=== PATIENT | male | born 1945 ===

== ENCOUNTER 2024-04-27 01:43 | Day surgery (SDC) | payer OTHER ==
[2024-04-22 14:35] VITALS: BP 135/76
[~2024-04-27] VITALS: Ht 177.8 cm; Wt 53.5 kg
[~2024-04-27 01:43] MED LIST: AMLODIPINE BESY10 MG PO; FINASTERIDE5 MG PO; GLIMEPIRIDE4 M1 PO; GRALISE600 MG PO; HYDRALAZINE HCL50 MG PO; PENTOXIFYLLINE400 MG PO; PROTONIX40 MG PO; TOPROL XL50 M1 PO
[2024-04-27] MEDS ORDERED: POVIDONE-IODINE 118 ML BOTT TOP ONE (15:16)
[2024-04-27] MEDS ORDERED: CEFTRIAXONE SODIUM 2,000 MG VIAL ONE (15:17)
[2024-04-27] MEDS ORDERED: HEMOSTATIC MATRIX 1 KIT KIT TOP ONE (15:17)
[2024-04-27] MEDS ORDERED: LIDOCAINE HCL 1%/EPINEPHRINE 20ML VIAL IJ ONE (15:17)
[2024-04-27] MEDS ORDERED: BUPIVACAINE HCL/MPF 0.5% 30ML VIAL ONE (15:17)
[2024-04-27] MEDS ORDERED: DIBUCAINE 30 GM TUBE ONE (15:17)
[2024-04-27] MEDS ORDERED: METRONIDAZOLE/SODIUM CHLORIDE 500 MG/100 ML PIGGYBACK IV ONE (15:18)
== END 2024-04-27 20:55 | disposition home or self-care (01) ==
LOC: CIR.AMB 01:43
PROVIDERS: ATTEND Colon & Rectal Surgery
DX: D12.8 Benign neoplasm of rectum (principal); D12.9 Benign neoplasm of anus and anal canal